=== PATIENT | male | born 1990 | race Caucasian/White ===

== ENCOUNTER 2019-06-01 16:40 | Emergency (ER) | payer BC, SELFPAY ==
[2019-06-01 17:05] VITALS: BP 122/76; PULSE 75; RESP 20; TEMP 37.1; O2SAT 100
--- NOTE | 2019-06-01 17:45 | ED.GENADULT ---
HPI - General Adult General Chief complaint: Upper Respiratory Infection Stated complaint: sore throat fever cough Time Seen by Provider: 06/01/19 17:45 Source: patient and RN notes reviewed Mode of arrival: ambulatory Limitations: no limitations History of Present Illness HPI narrative: 29-year-old male presents with complaints of upper respiratory infection symptoms, fatigue, body aches, chills. sore throat for 3-4 days. Ibuprofen with little relief. No high fevers, drooling, neck or throat swelling. Pain is bilateral. Hurts to swallow. No voice change. Exacerbation factors consist of smoke exposure, eating, and drinking. Rhinorrhea and nasal congestion. No nausea, vomiting, or abdominal pain. Tolerating liquids well. Denies chest pain, dyspnea, difficulty swallowing, jaw pain, dental pain, facial pain, foreign body sensation, and rash. Remains active. Some parts of this dictation were generated by voice recognition software and may contain typographical and/or grammatical inaccuracies. Related Data Home Medications Medication Instructions Recorded Confirmed [id number] ala 1 tablet PO DAILY 06/01/19 06/01/19 [Biktarvy] fluoxetine 20 mg PO BID 06/01/19 06/01/19 glecaprevir-pibrentasvir [Mavyret] 3 tablet PO DAILY 06/01/19 06/01/19 hydrocodone-acetaminophen 1 tablet PO HS PRN 06/01/19 06/01/19 ibuprofen 800 mg PO TID PRN 06/01/19 06/01/19 tizanidine 4 mg PO Q8H PRN 06/01/19 06/01/19 Allergies Allergy/AdvReac Type Severity Reaction Status Date / Time ketorolac Allergy Mild Unknown Verified 06/01/19 17:50 ondansetron Allergy Mild Nausea and Verified 06/01/19 17:50 Vomiting tramadol Allergy Mild Unknown Verified 06/01/19 17:50 Review of Systems Review of Systems: Narrative: CONSTITUTIONAL: Denies fever, sweats. Complains of fatigue, chills. EYES: Denies visual changes, redness, discharge. ENT: Denies otalgia. Complains of rhinorrhea, sore throat, congestion. CARDIOVASCULAR: Denies chest pain, palpitations, edema. RESPIRATORY: Denies dyspnea, wheezing. Complains of cough. GASTROINTESTINAL: Denies abdominal pain, nausea, vomiting, diarrhea. GENITOURINARY: Denies dysuria, hematuria, abnormal discharge. SKIN: Denies rash or itching. MUSCULOSKELETAL: Denies acute back pain, joint pain. Complains of myalgia. NEUROLOGIC: Denies numbness or focal weakness. PSYCHIATRIC: Denies anxiety or depression. All systems reviewed & are unremarkable except as noted in HPI and below. [facility] Past Medical History Medical History (Updated 06/04/19 @ 23:14 by JEANCARLOS Sanchez) Asthma Kidney stones Surgical History Surgical History (Updated 06/01/19 @ 18:14 by JEANCARLOS Sanchez) History of colonoscopy History of lithotripsy Family History Family History (Updated 06/01/19 @ 18:14 by JEANCARLOS Sanchez) Mother Asthma Sibling Asthma Grandparent Diabetes mellitus Social History Social History (Updated 06/01/19 @ 18:15 by JEANCARLOS Sanchez) Smoking packs per day: 0.5 Smoking cigarettes per day: 10.0 Years smoked: 16 Smoking pack-years: 8.00 Smoking status: Current every day smoker Tobacco type: cigarettes Second hand tobacco smoke exposure: Yes Alcohol intake: current Alcohol use details: Occasional Substance use: never Living arrangements: with family Occupation/Education: occupation Gender identity (if verbalized by the patient): Male Comments At time of signature, agree with nurse past medical, surgical, social, and family history. There is no relevant family history pertinent to the presenting complaint. Exam Narrative: Exam Narrative: GENERAL: This is a well-nourished, well-developed patient, in no apparent distress. Speaks in full sentences without deficits and ambulates with steady gait without dyspnea. HEAD: normocephalic, atraumatic. EYES: PERRL. Sclera clear/white. Vision is grossly intact. EARS: External ears no
== END 2019-06-01 18:00 | disposition home or self-care (01) ==
PROVIDERS: Emergency Provider Nurse Practitioner Family
DX: J02.0 Streptococcal pharyngitis (principal); Z21 Asymptomatic human immunodeficiency virus [HIV] infection status; Z86.19 Personal history of other infectious and parasitic diseases
CPT/HCPCS: 87804; 87880; 99203; G0463